=== PATIENT | female | born 1955 | race Caucasian/White ===

== ENCOUNTER 2018-04-13 09:47 | Emergency (ER) | payer BC ==
--- NOTE | 2018-04-13 10:48 | RAD REPORT ---
EXAM DESCRIPTION: CT - CTHCSPWOC - 04/13/2018 10:20 am CLINICAL HISTORY: Trauma, head and neck injury. Fall;Pain COMPARISON: No comparisons TECHNIQUE: Axial 5 mm thick images of the head were obtained. Axial 2 mm thick images of the cervical spine were obtained with sagittal and coronal reconstruction images generated and reviewed. All CT scans are performed using dose optimization technique as appropriate and may include automated exposure control or mA/KV adjustment according to patient size. FINDINGS: CT HEAD WITHOUT CONTRAST: No acute hemorrhage, hydrocephalus or extra-axial collection is identified.Mild brain atrophy.No area s of brain edema or midline shift. The paranasal sinuses and mastoids are clear.The calvarium is intact. CT CERVICAL SPINE WITHOUT CONTRAST: No fracture or subluxation.Mild cervical spondylosis.No prevertebral soft tissues swelling is identif ied. IMPRESSION: No acute intracranial or cervical spine findings.
[2018-04-13] MEDS ORDERED: KETOROLAC 30 MG/ML INJ ONE (11:20)
--- NOTE | 2018-04-13 11:20 | RAD REPORT ---
EXAM DESCRIPTION: RAD - Knee Right 3 View - 04/13/2018 11:01 am CLINICAL HISTORY: Right knee pain status post fall FINDINGS: No fracture or dislocation is seen. A right knee arthroplasty has been performed. There is no evidence of loosening the prosthesis.
--- NOTE | 2018-04-13 12:21 | EDPHYS ---
Physician Documentation [facility] Name: Barb Gutierrez Age: 62 yrs Sex: Female : 1955 Arrival Date: 04/13/2018 Time: 09:47 Bed 18 Private MD: ED Physician Fransico Mccray HPI: 04/13 11:00 This 62 yrs old Female presents to ER via EMS with complaints of Fall Injury. pm1 11:00 Details of fall: The patient fell from an upright position, while walking. Onset: The pm1 symptoms/episode began/occurred just prior to arrival. Associated injuries: The patient sustained injury to the head, tenderness, right knee. The patient has not experienced similar symptoms in the past. Patient was walking and slipped on wet algae on the concrete. Hit the back of her head as her right knee bent behind her. No LOC, Neck pain, nausea, or vomiting. Historical: - Allergies: 11:23 No Known Allergies; sv - Immunization history:: Adult Immunizations up to date. - Social history:: Smoking status: Patient/guardian denies using tobacco. - Ebola Screening: : No symptoms or risks identified at this time. ROS: 11:00 Constitutional: Negative for fever, chills, and weight loss, Eyes: Negative for injury, pm1 pain, redness, and discharge, ENT: Negative for injury, pain, and discharge, Neck: Negative for injury, pain, and swelling, Cardiovascular: Negative for chest pain, palpitations, and edema, Respiratory: Negative for shortness of breath, cough, wheezing, and pleuritic chest pain, Abdomen/GI: Negative for abdominal pain, nausea, vomiting, diarrhea, and constipation, Back: Negative for injury and pain. 11:00 Skin: Negative for injury, rash, and discoloration. 11:00 MS/extremity: Positive for pain, of the right knee, Negative for decreased range of motion, deformity. 11:00 Neuro: Positive for headache, of the left parietal area, Negative for loss of consciousness, numbness, syncope, near syncope, tingling, weakness. Exam: 11:00 Constitutional: This is a well developed, well nourished patient who is awake, alert, pm1 and in no acute distress. Eyes: Pupils equal round and reactive to light, extra-ocular motions intact. Lids and lashes normal. Conjunctiva and sclera are non-icteric and not injected. Cornea within normal limits. Periorbital areas with no swelling, redness, or edema. ENT: Nares patent. No nasal discharge, no septal abnormalities noted. Tympanic membranes are normal and external auditory canals are clear. Oropharynx with no redness, swelling, or masses, exudates, or evidence of obstruction, uvula midline. Mucous membranes moist. 11:00 Neck: Trachea midline, no thyromegaly or masses palpated, and no cervical lymphadenopathy. Supple, full range of motion without nuchal rigidity, or vertebral point tenderness. No Meningismus. Chest/axilla: Normal chest wall appearance and motion. Nontender with no deformity. No lesions are appreciated. Cardiovascular: Regular rate and rhythm with a normal S1 and S2. No gallops, murmurs, or rubs. Normal PMI, no JVD. No pulse deficits. Respiratory: Lungs have equal breath sounds bilaterally, clear to auscultation and percussion. No rales, rhonchi or wheezes noted. No increased work of breathing, no retractions or nasal flaring. Abdomen/GI: Soft, non-tender, with normal bowel sounds. No distension or tympany. No guarding or rebound. No evidence of tenderness throughout. Back: No spinal tenderness. No costovertebral tenderness. Full range of motion. Skin: Warm, dry with normal turgor. Normal color with no rashes, no lesions, and no evidence of cellulitis. 11:00 Head/face: Noted is no obvious of injury or deformity except tenderness, that is mild, of the left side of the back of head. 11:00 Musculoskeletal/extremity: Extremities: grossly normal except: noted in the right knee: tenderness, ROM: intact in all extremities, Circulation is intact in all extremities. Sensation intact. 11:00 Neuro: Orientation: is normal, Motor: moves all fours, strength is normal, strength is 5/5 in all extremities. Vital Signs: 09:50 BP 115 / 81; Pulse 82; Resp 17; Temp 97.6; Pulse Ox 98% on R/A; Pain 5/10; mh5 10:31 BP 151 / 86; Pulse 60; Resp 18; Pulse Ox 100% ; sv 11:23 BP 145 / 81; Pulse 61; Resp 16; Pulse Ox 100% ; sv 12:09 BP 133 / 83; Pulse 58; Resp 16; Pulse Ox 100% ; sv MDM: 10:00 Patient medically screened. pm1 12:00 ED course: Patient offered crutches and knee immobilizer. Patient requested alphonse wrap pm1 and she has walkers and canes at home. 12:19 Data reviewed: vital signs. Data interpreted: Pulse oximetry: on room air is 100 %. pm1 Interpretation: normal. Counseling: I had a detailed discussion with the patient and/or guardian regarding: the historical points, exam findings, and any diagnostic results supporting the discharge/admit diagnosis, radiology results, the need for outpatient follow up, to return to the emergency department if symptoms worsen or persist or if there are any questions or concerns that arise at home. 04/13 10:06 Order name: CT Head C Spine; Complete Time: 10:49 pm1 04/13 10:06 Order name: Knee Right 3 View XRAY; Complete Time: 11:34 pm1 04/13 12:25 Order name: Alphonse Wrap: right knee; Complete Time: 12:50 pm1 Administered Medications: 11:22 Drug: TORadol 30 mg Route: IM; Site: right gluteus; sv 11:38 Follow up: Response: No adverse reaction sv Disposition: 04/14 06:51 Co-signature as Attending Physician, Fransico Mccray MD I agree with the assessment and rosana plan of care. Disposition: 04/13/18 12:20 Discharged to Home. Impression: Superficial injury of head, Sprain of unspecified site of right knee. - Condition is Stable. - Discharge Instructions: Head Injury, Adult, Knee Sprain. - Medication Reconciliation Form, Thank You Letter, Antibiotic Education, Prescription Opioid Use form. - Follow up: Emergency Department; When: As needed; Reason: Worsening of condition. Follow up: Private Physician; When: 2 - 3 days; Reason: Recheck today's complaints, Continuance of care, Re-evaluation by your physician. - Problem is new. - Symptoms have improved. Signatures: Dispatcher [employer] Natalie Kumar RN RN sv Anderson, Corey, MD MD cha Marinas, Patrick, PEDIATRIC NURSE PEDIATRIC NURSE pm1 Corrections: (The following items were deleted from the chart) 04/13 13:09 12:20 04/13/2018 12:20 Discharged to Home. Impression: Superficial injury of headSprain sv of unspecified site of right knee. Condition is Stable. Forms are Medication Reconciliation Form, Thank You Letter, Antibiotic Education, Prescription Opioid Use. Follow up: Emergency Department; When: As needed; Reason: Worsening of condition. Follow up: Private Physician; When: 2 - 3 days; Reason: Recheck today's complaints, Continuance of care, Re-evaluation by your physician. Problem is new. Symptoms have improved. pm1
--- NOTE | 2018-04-13 12:21 | ER ---
Nurse's Notes [facility] Name: Barb Gutierrez Age: 62 yrs Sex: Female : 1955 Arrival Date: 04/13/2018 Time: 09:47 Bed 18 Private MD: Diagnosis: Sprain of unspecified site of right knee;Superficial injury of head Presentation: 04/13 09:43 Presenting complaint: EMS states: pt was walking slipped and fell, back of head hit tw2 concrete, she does have right knee pain but that is not new and contributed to her fall, no blood thinners, no loc. Transition of care: patient was not received from another setting of care. Onset of symptoms was April 13, 2018. Risk Assessment: Do you want to hurt yourself or someone else? Patient reports no desire to harm self or others. Initial Sepsis Screen: Does the patient meet any 2 criteria? No. Patient's initial sepsis screen is negative. Does the patient have a suspected source of infection? No. Patient's initial sepsis screen is negative. Care prior to arrival: None. 09:43 Method Of Arrival: EMS: [facility] tw2 09:43 Acuity: KRISTIAN 3 tw2 Historical: - Allergies: 11:23 No Known Allergies; sv - Immunization history:: Adult Immunizations up to date. - Social history:: Smoking status: Patient/guardian denies using tobacco. - Ebola Screening: : No symptoms or risks identified at this time. Screenin:09 Abuse screen: Denies threats or abuse. Denies injuries from another. Nutritional sv screening: No deficits noted. Tuberculosis screening: No symptoms or risk factors identified. Fall Risk None identified. Assessment: 10:00 Reassessment: Patient and/or family updated on plan of care and expected duration. Pain sv level reassessed. Patient is alert, oriented x 3, equal unlabored respirations, skin warm/dry/pink. 11:20 General: Appears in no apparent distress. uncomfortable, well developed, Behavior is sv calm, cooperative, appropriate for age. Pain: Complains of pain in scalp and right knee Pain currently is 5 out of 10 on a pain scale. Quality of pain is described as throbbing. Neuro: Level of Consciousness is awake, alert, obeys commands, Oriented to person, place, time, situation, Moves all extremities. Speech is normal. Respiratory: Airway is patent Respiratory effort is even, unlabored, Respiratory pattern is regular, symmetrical. Derm: Skin is pink, warm \T\ dry. Musculoskeletal: Range of motion: intact in all extremities. 13:08 Reassessment: Patient appears in no apparent distress at this time. No changes from sv previously documented assessment. Patient and/or family updated on plan of care and expected duration. Pain level reassessed. Patient is alert, oriented x 3, equal unlabored respirations, skin warm/dry/pink. Vital Signs: 09:50 BP 115 / 81; Pulse 82; Resp 17; Temp 97.6; Pulse Ox 98% on R/A; Pain 5/10; mh5 10:31 BP 151 / 86; Pulse 60; Resp 18; Pulse Ox 100% ; sv 11:23 BP 145 / 81; Pulse 61; Resp 16; Pulse Ox 100% ; sv 12:09 BP 133 / 83; Pulse 58; Resp 16; Pulse Ox 100% ; sv ED Course: 09:47 Patient arrived in ED. tw2 09:49 Triage completed. tw2 09:49 Arm band placed on. tw2 09:50 Placed in gown. Bed in low position. Side rails up X2. felt coverer on. Pulse ox on. tw2 NIBP on. Warm blanket given. 10:00 Justin Castellanos NP is PHCP. pm1 10:00 Fransico Mccray MD is Attending Physician. pm1 10:20 CT Head C Spine In Process Unspecified. EDMS 10:21 CT completed. Patient tolerated procedure well. Patient moved to CT via wheelchair. Patient moved back from CT. 10:27 Natalie Lara, REYNOLD is Primary Nurse. sv 11:01 Knee Right 3 View XRAY In Process Unspecified. EDMS 11:02 X-ray completed. Portable x-ray completed in exam room. jr1 12:49 Alphonse wrap to right knee. mh5 13:08 No provider procedures requiring assistance completed. Patient did not have IV access sv during this emergency room visit. Administered Medications: 11:22 Drug: TORadol 30 mg Route: IM; Site: right gluteus; sv 11:38 Follow up: Response: No adverse reaction sv Outcome: 12:20 Discharge ordered by . pm1 13:08 Discharged to home via wheelchair, with family. sv 13:08 Condition: stable 13:08 Discharge instructions given to patient, Instructed on discharge instructions, follow up and referral plans. Demonstrated understanding of instructions, follow-up care. 13:09 Patient left the ED. sv Signatures: Dispatcher [employer] EDNatalie Cui RN RN Malena Dean Jennifer jr1 Justin Castellanos, MEDICAL MICROBIOLOGIST MEDICAL MICROBIOLOGIST pm1 Haven Simon RN RN tw2 Idania Mercado [facility] Corrections: (The following items were deleted from the chart) 09:56 09:50 BP 115 / 81; Pulse 82bpm; Resp 17bpm; Pulse Ox 98% RA; Pain 5/10; tw2 mh5
== END 2018-04-13 13:09 | disposition home or self-care (01) ==
LOC: ER 09:47
DX: S00.90XA Unspecified superficial injury of unspecified part of head, initial encounter (principal); S83.91XA Sprain of unspecified site of right knee, initial encounter; W01.0XXA Fall on same level from slipping, tripping and stumbling without subsequent striking against object, initial encounter; Y93.89 Activity, other specified; Y92.9 Unspecified place or not applicable
CPT/HCPCS: 70450; 72125; 96372; 99285